=== PATIENT | male | born 1940 | race Caucasian/White ===

== ENCOUNTER 2019-04-02 08:45 | Inpatient (IN) | payer MEDICARE ==
[~2019-04-02] VITALS: Ht 172.7 cm; Wt 74.9 kg
[2019-04-02 09:52] LABS: BASOPHILS # (AUTO) 0.02 x10^3/uL (0-0.1); BASOPHILS % (AUTO) 0 % (0-1); EOSINOPHILS # (AUTO) 0.12 x10^3/uL (0-0.4); EOSINOPHILS % (AUTO) 2 % (1-7); LYMPHOCYTES # (AUTO) 1.25 x10^3/uL (1-3.4); LYMPHOCYTES % (AUTO) 21 % (22-44); MD NO; MEAN CORPUSCULAR HEMOGLOBIN 32.5 pg (27.5-34.5); MEAN CORPUSCULAR VOLUME 98.5 fL (81-97); MEAN PLATELET VOLUME 7.1 fL (7.4-10.4); MONOCYTES # (AUTO) 0.51 x10^3/uL (0.2-0.8); MONOCYTES % (AUTO) 9 % (2-9); NEUTROPHILS # (AUTO) 4.09 x10^3/uL (1.8-6.8); NEUTROPHILS % (AUTO) 68 % (42-75); PLATELET COUNT 232 x10^3/uL (130-400); RED BLOOD COUNT 4.55 x10^6/uL (4.38-5.82); RED CELL DISTRIBUTION WIDTH 13.6 % (9.4-14.8)
--- NOTE | 2019-04-02 09:53 | NUR ---
PT IN HOSPITAL GOWN, ON CARDIAC AND VITALS MONITORS. PT TO RAD AT THIS TIME. PT AND UNABLE TO RECALL NAMES OF HOME MEDS. UNABLE TO UPDATE MED REC AT THIS TIME.
[2019-04-02] MEDS ORDERED: SODIUM CHLORIDE FLUSH 10ML SYR IVF ONE (10:00)
[2019-04-02 10:03] LABS: INTERNATIONAL NORMALIZED RATIO 0.94 (0.93-1.1)
[2019-04-02 10:04] LABS: ALANINE AMINOTRANSFERASE 17 U/L (12-78); ALBUMIN 3.7 g/dL (3.4-5.0); ANION GAP 4 mmol/L (5-15); CALCIUM 8.5 mg/dL (8.5-10.1); CHLORIDE 113 mmol/L (98-107); CREATININE 1.39 mg/dL (0.7-1.3)
[2019-04-02 10:06] LABS: ALKALINE PHOSPHATASE 63 U/L (45-117); BILIRUBIN,TOTAL 0.6 mg/dL (0.2-1.0); TOTAL PROTEIN 7.2 g/dL (6.4-8.2)
[2019-04-02] MEDS ORDERED: ASPIRIN 81 MG TABLET CHEW PO ONE (10:30)
[2019-04-02] MEDS ORDERED: ASPIRIN 81 MG TABLET CHEW ONE (10:31)
--- NOTE | 2019-04-02 10:35 | NUR ---
HOSPITALIST AT BEDSIDE. PT BP REMAINS ELEVATED, SEE CHARTED. PT CONTINUES TO HAVE TROUBLE FINDING WORDS. IV PLACED. BILAT BEDRAILS UP. WILL CONTINUE TO MONITOR.
[2019-04-02 10:42] LABS: MICROSCOPIC AUTO
[2019-04-02 10:47] LABS: CULTURE INDICATED? NO
[2019-04-02] MEDS ORDERED: BISACODYL 10 MG SUPP PR PRN (12:00)
[2019-04-02] MEDS ORDERED: HYDROcodone/APAP 5/325 TABLET PO PRN (12:00)
[2019-04-02] MEDS ORDERED: DOCUSATE 100 MG CAPSULE PO PRN (12:00)
[2019-04-02] MEDS ORDERED: ENALAPRILAT 1.25 MG/ML, 2ML IV PRN ×2 (12:00→18:00)
[2019-04-02] MEDS ORDERED: ONDANSETRON 2MG/ML, 2ML IVPush PRN (12:00)
[2019-04-02] MEDS ORDERED: POLYETHYLENE GLYCOL 17 GM PACKET PO PRN (12:00)
[2019-04-02] MEDS ORDERED: ACETAMINOPHEN 650 MG/20.3 ML UDC PO PRN (12:00)
[2019-04-02] MEDS ORDERED: LABETALOL 5MG/ML, 20ML IV PRN ×2 (12:00→13:30)
[2019-04-02] MEDS ORDERED: DIPH25CA61 PO (12:18)
[2019-04-02] MEDS ORDERED: AMLO-150 PO (12:18)
[2019-04-02] MEDS ORDERED: KRIL1CAP8 PO (12:18)
[2019-04-02] MEDS ORDERED: GARL1TAB2 PO (12:18)
[2019-04-02] MEDS ORDERED: ASPI-496 PO (12:18)
[2019-04-02] MEDS ORDERED: CA C1TAB62 PO (12:18)
[2019-04-02] MEDS ORDERED: OMEG100023 PO (12:18)
[2019-04-02] MEDS ORDERED: [UNRECOGNIZED DRUG - OTHER] PO (12:18)
[2019-04-02] MEDS ORDERED: LORA-247 PO (12:18)
--- NOTE | 2019-04-02 12:33 | NUR ---
REPORT GIVEN TO SARA WHITE FOR ROOM 426. ABLE TO UPDAE MED REC PT BROUGHT IN MEDS FROM HOME.
[2019-04-02] MEDS ORDERED: ENOXAPARIN 40 MG/0.4 ML SQ SCH (13:00)
[2019-04-02 13:12] VITALS: BP 184/79
[2019-04-02 16:19] VITALS: BP 158/71
[2019-04-02 18:56] VITALS: BP 164/70
[2019-04-02] MEDS ORDERED: ATORVASTATIN 80 MG TABLET PO SCH (21:00)
[2019-04-02] MEDS: APIXABAN 5 MG TABLET PO SCH (23:09)
[2019-04-03 00:40] VITALS: BP 145/64
[2019-04-03 06:00] LABS: BASOPHILS # (AUTO) 0.02 x10^3/uL (0-0.1); BASOPHILS % (AUTO) 0 % (0-1); EOSINOPHILS # (AUTO) 0.14 x10^3/uL (0-0.4); EOSINOPHILS % (AUTO) 2 % (1-7); LYMPHOCYTES # (AUTO) 1.52 x10^3/uL (1-3.4); LYMPHOCYTES % (AUTO) 24 % (22-44); MD NO; MEAN CORPUSCULAR HEMOGLOBIN 32.6 pg (27.5-34.5); MEAN CORPUSCULAR HGB CONC 33.3 g/dL (33.2-36.2); MEAN CORPUSCULAR VOLUME 97.8 fL (81-97); MEAN PLATELET VOLUME 7.9 fL (7.4-10.4); MONOCYTES # (AUTO) 0.64 x10^3/uL (0.2-0.8); MONOCYTES % (AUTO) 10 % (2-9); NEUTROPHILS # (AUTO) 4.03 x10^3/uL (1.8-6.8); NEUTROPHILS % (AUTO) 63 % (42-75); PLATELET COUNT 224 x10^3/uL (130-400); RED BLOOD COUNT 4.47 x10^6/uL (4.38-5.82); RED CELL DISTRIBUTION WIDTH 13.3 % (9.4-14.8)
[2019-04-03 06:10] LABS: ALBUMIN 3.4 g/dL (3.4-5.0); ANION GAP 5 mmol/L (5-15); CALCIUM 8.6 mg/dL (8.5-10.1); CHLORIDE 113 mmol/L (98-107); CHOLESTEROL, TOTAL 187 mg/dL (140-239); TRIGLYCERIDES 84 mg/dL (50-200); VLDL CHOLESTEROL 17 mg/dL (0-25)
[2019-04-03 06:21] LABS: ALANINE AMINOTRANSFERASE 15 U/L (12-78); ALKALINE PHOSPHATASE 58 U/L (45-117); BILIRUBIN,TOTAL 0.8 mg/dL (0.2-1.0); CHOL/HDL RATIO 5.5; CREATININE 1.38 mg/dL (0.7-1.3); HDL CHOL % 18 % (26-37); HDL CHOLESTEROL (DIRECT) 34 mg/dL (40-60); LDL CHOLESTEROL,CALCULATED 136 mg/dL (54-169); TOTAL PROTEIN 6.9 g/dL (6.4-8.2)
[2019-04-03] MEDS: APIXABAN 5 MG TABLET PO SCH (08:38)
[2019-04-03 08:40] VITALS: BP 184/73
[2019-04-03] MEDS ORDERED: AMLODIPINE 5 MG TABLET PO SCH (09:00)
[2019-04-03] MEDS ORDERED: ASPIRIN 81 MG TABLET CHEW PO/NG SCH (09:00)
[2019-04-03 10:22] VITALS: BP 169/75
[2019-04-03 12:50] VITALS: BP 128/75
[2019-04-03] MEDS ORDERED: ATOR-2 PO (17:05)
[2019-04-03] MEDS ORDERED: CLOP75TA52 PO (17:05)
[2019-04-03] MEDS ORDERED: METO25TA91 PO (17:46)
== END 2019-04-03 18:44 | disposition home health service (06) | DRG 64 ==
LOC: SUATTDRO 10:23 → ED 10:44 → EDIP 11:44 → 4WST 12:51
PROVIDERS: ADMIT Internal Medicine; ATTEND Family Medicine
DX: I63.412 Cerebral infarction due to embolism of left middle cerebral artery (principal); G93.41 Metabolic encephalopathy; I16.1 Hypertensive emergency; N17.9 Acute kidney failure, unspecified; I63.432 Cerebral infarction due to embolism of left posterior cerebral artery; R47.01 Aphasia; I65.22 Occlusion and stenosis of left carotid artery; I10 Essential (primary) hypertension; I35.8 Other nonrheumatic aortic valve disorders; I65.01 Occlusion and stenosis of right vertebral artery; Z82.3 Family history of stroke; Z86.73 Personal history of transient ischemic attack (TIA), and cerebral infarction without residual deficits; Z79.899 Other long term (current) drug therapy; Z79.82 Long term (current) use of aspirin; Z79.02 Long term (current) use of antithrombotics/antiplatelets
CPT/HCPCS: 36415; 70450; 70544; 70551; 71045; 80053; 80061; 81001; 83880; 84443; 85025; 85610; 85730; 93005; 93306; 93880; 99285; G0378; J1650; 92523-GN

== ENCOUNTER 2019-12-17 10:02 | Emergency (ER) | payer MEDICARE ==
[~2019-12-17] VITALS: Ht 172.7 cm; Wt 70.5 kg
[~2019-12-17 10:02] MED LIST: AMLO-150 PO; ASPI-496 PO; ATOR-2 PO; CA C1TAB62 PO; CLOP75TA52 PO; DIPH25CA61 PO; GARL1TAB2 PO; KRIL1CAP8 PO; LORA-247 PO; METO25TA91 PO; OMEG100023 PO; [UNRECOGNIZED DRUG - OTHER] PO
[2019-12-17 10:12] VITALS: BP 154/62
--- NOTE | 2019-12-17 10:46 | NUR ---
PT TO ROOM 12 BY FOR C/O BEHAVIOR THAT IS OUT OF THE ORDINARY FOR THE LAST FEW DAYS. PER PT HAD A STROKE IN APRIL AND SOME OF THE SX PERSISTED AND THEY HAVE INCREASED OVER THE LAST FEW DAYS. PT STATES SHE CALLED AND SPOKE W/ PT'S MD WHO RECOMMENDED PT COME BACK TO ED. PT IS AOX4. NEURO INTACT. PT RESTING ON GURNEY. NADN. MONITORS APPLIED. VSS.
[2019-12-17 11:11] LABS: BASOPHILS % (AUTO) 0 % (0-1); EOSINOPHILS % (AUTO) 1 % (1-7); LYMPHOCYTES % (AUTO) 16 % (22-44); MEAN CORPUSCULAR HEMOGLOBIN 32.4 pg (27.5-34.5); MEAN CORPUSCULAR HGB CONC 33.4 g/dL (33.2-36.2); MEAN PLATELET VOLUME 7.7 fL (7.4-10.4); MONOCYTES % (AUTO) 9 % (2-9); NEUTROPHILS % (AUTO) 75 % (42-75); PLATELET COUNT 222 x10^3/uL (130-400); RED CELL DISTRIBUTION WIDTH 13.7 % (9.4-14.8)
[2019-12-17 11:12] LABS: MD NO
[2019-12-17 11:21] LABS: ALANINE AMINOTRANSFERASE 34 U/L (12-78); ALBUMIN 3.9 g/dL (3.4-5.0); ANION GAP 5 mmol/L (5-15); CALCIUM 9.2 mg/dL (8.5-10.1); CHLORIDE 111 mmol/L (98-107); CREATININE 1.26 mg/dL (0.7-1.3)
[2019-12-17 11:23] LABS: ALKALINE PHOSPHATASE 81 U/L (45-117); BILIRUBIN,TOTAL 0.8 mg/dL (0.2-1.0); TOTAL PROTEIN 7.3 g/dL (6.4-8.2)
--- NOTE | 2019-12-17 11:26 | NUR ---
PT RESTING ON GURNEY. NADN. CROW.
--- NOTE | 2019-12-17 11:53 | NUR ---
REPORT GIVEN TO CINDY ROTH.
--- NOTE | 2019-12-17 12:04 | NUR ---
REPORT RCD FROM CINDY NAQVI. ASSUMED CARE OF THIS PT. PT IN NAD, VSS. WAITING FOR MD RE-EVAL. AIDET PROVIDED. WILL CONTINUE TO MONITOR.
== END 2019-12-17 13:09 | disposition home or self-care (01) ==
LOC: ED 11:27
DX: R41.82 Altered mental status, unspecified (principal); G30.1 Alzheimer's disease with late onset; F02.81 Dementia in other diseases classified elsewhere, unspecified severity, with behavioral disturbance; I44.7 Left bundle-branch block, unspecified; Z86.73 Personal history of transient ischemic attack (TIA), and cerebral infarction without residual deficits
CPT/HCPCS: 36415; 70450; 71045; 80053; 85025; 93005; 99285